=== PATIENT | female | born 1935 | race Caucasian/White ===

== ENCOUNTER 2019-06-29 11:17 | Inpatient (IN) | payer OTHER ==
--- NOTE | 2019-06-29 11:38 | PDOC ---
History of Present Illness - General Chief Complaint: Blood Pressure Problem Stated Complaint: ELEVATED BLOOD PRESSURE SLIGHT BLURRY VISION Time Seen by Provider: 06/29/19 11:21 History Source: Patient Exam Limitations: No Limitations - History of Present Illness Initial Comments: 83 yo F history HTN presents with elevated BP, blurry vision since she woke up this morning. As per daughter at bedside (translating at patient's request), patient called her this morning because her vision was blurry. Daughter asked her to check her BP and it was 223/105. She was recently taken off norvasc due to chronic leg swelling, meds were changed. However, daughter told her to take a dose of norvasc due to the high blood pressure. Upon arrival in the ED, she reports that her vision is improving. Denies weakness, numbness, headache, cp, SOB. Past History - Past Medical History Allergies/Adverse Reactions: Allergies Allergy/AdvReac Type Severity Reaction Status Date / Time No Known Allergies Allergy Unverified 06/29/19 11:19 Home Medications: Ambulatory Orders Atorvastatin Calcium 10 mg PO DAILY 06/29/19 Carvedilol 3.125 mg PO BID 06/29/19 Losartan Potassium 100 mg PO DAILY 06/29/19 Tramadol HCl 50 mg PO TID 06/29/19 COPD: No HTN: Yes Hypercholesterolemia: Yes Other medical history: BACK PAIN - Surgical History Cholecystectomy: Yes - Psycho Social/Smoking Cessation Hx Smoking History: Never smoked Information on smoking cessation initiated: No Hx Alcohol Use: No Drug/Substance Use Hx: No Review of Systems - Review of Systems Able to Perform ROS?: Yes Comments:: GENERAL/CONSTITUTIONAL: No fever or chills. No weakness. HEAD, EYES, EARS, NOSE AND THROAT: +Blurry vision B/L. No ear pain or discharge. No sore throat. CARDIOVASCULAR: No chest pain or shortness of breath. RESPIRATORY: No cough, wheezing, or hemoptysis. GASTROINTESTINAL: No nausea, vomiting, diarrhea or constipation. GENITOURINARY: No dysuria, frequency, or change in urination. MUSCULOSKELETAL: No joint or muscle swelling or pain. No neck or back pain. SKIN: No rash. NEUROLOGIC: No headache, vertigo, loss of consciousness, or change in strength/ sensation. ENDOCRINE: No increased thirst. No abnormal weight change. HEMATOLOGIC/LYMPHATIC: No anemia, easy bleeding, or history of blood clots. ALLERGIC/IMMUNOLOGIC: No hives or skin allergy. *Physical Exam - Vital Signs Last Vital Signs Temp Pulse Resp BP Pulse Ox 98.2 F 85 16 201/93 H 97 06/29/19 11:19 06/29/19 11:34 06/29/19 11:19 06/29/19 11:34 06/29/19 11:34 - Physical Exam GENERAL: Awake, alert, and fully oriented, in no acute distress HEAD: No signs of trauma EYES: PERRLA, EOMI, sclera anicteric, conjunctiva clear ENT: Auricles normal inspection, hearing grossly normal, nares patent, oropharynx clear without exudates. Moist mucosa NECK: Normal ROM, supple, no lymphadenopathy, JVD, or masses LUNGS: Breath sounds equal, clear to auscultation bilaterally. No wheezes, and no crackles HEART: Regular rate and rhythm, normal S1 and S2, no murmurs, rubs or gallops ABDOMEN: Soft, nontender, normoactive bowel sounds. No guarding, no rebound. No masses EXTREMITIES: Normal range of motion, no edema. No clubbing or cyanosis. No cords, erythema, or tenderness NEUROLOGICAL: Cranial nerves II through XII grossly intact. Normal speech, normal gait. Motor and sensation intact SKIN: Warm, dry, normal turgor, no rashes or lesions noted. ED Treatment Course - LABORATORY CBC & Chemistry Diagram: 06/29/19 12:30 06/29/19 12:30 Medical Decision Making - Medical Decision Making 06/29/19 13:31 Late entry. Pt presented with blurry vision with severely elevated BP. She took extra BP med (dose of her leftover norvasc) [employer], but the onset will be 24 hours minimum. Will give dose of labetalol in ED, goal of 25% reduction in BP. MAP from her AM BP measurement is 144, so goal MAP is 108. Will plan for admission for hypertensive urgency. 06/29/19 14:[address] Burns, accepted for admission. Discharge - Discharge Information Problems reviewed: Yes Clinical Impression/Diagnosis: Hypertensive urgency Condition: Stable - Admission Yes - Follow up/Referral - Patient Discharge Instructions - Post Discharge Activity
[2019-06-29 13:05] LABS: BASO % 0.6 % (0-2.0); EOS % 0.4 % (0-4.5); HEMATOCRIT 44.3 % (32.4-45.2); HEMOGLOBIN 14.9 GM/dl (10.7-15.3); MCH 30.2 pg (25.7-33.7); MCHC 33.6 g/dl (32.0-36.0); MEAN CELL VOLUME 89.9 fl (80-96); MEAN PLT VOLUME 8.3 fl (7.5-11.1); MONO % 10.3 % (3.8-10.2); NEUT % 54.7 % (42.8-82.8); PLATELET COUNT 184 K/MM3 (134-434); RBC 4.92 M/mm3 (3.60-5.2); RDW 12.7 % (11.6-15.6)
[2019-06-29 13:13] LABS: BILIRUBIN,TOTAL 0.8 mg/dl (0.2-1); CALCIUM 9.2 mg/dl (8.5-10); CREATININE 0.6 mg/dl (0.55-1.3); POTASSIUM 4.3 mmol/L (3.5-5.1); TOT PROT 7.4 g/dl (6.4-8.2)
[2019-06-29] MEDS ORDERED: LABETALOL HCL 5 MG/1 ML (100MG/20 ML VIAL) IVPUSH ONE (13:31)
[2019-06-29] MEDS ORDERED: LABETALOL HCL 5 MG/1 ML (100MG/20 ML VIAL) ONE (13:55)
[2019-06-29 17:02] VITALS: BMI 25.2
[2019-06-29] MEDS: HYDROCHLOROTHIAZIDE 25 MG TABLET (FP) PO SCH (17:08)
--- NOTE | 2019-06-29 18:51 | HP ---
CHIEF COMPLAINT: blurry vision , here with elevated blood pressure PCP:Dr. Malik HISTORY OF PRESENT ILLNESS: 83 year old female mainly Amharic speaking with history of hypertension who presents with elevated BP of 223/105 associated with symptoms of blurry vision since she woke up this morning. She was recently taken off norvasc due to chronic leg swelling. Daughter told her to take a dose of norvasc due to the high blood pressure. Upon arrival in the ED, she reports that her vision has improved. She denied weakness, numbness, headache, chest pain, or shortness of breath. She reports being compliant to her meds and eating foods low in sodium. ER course was notable for: (1)hypertensive urgency, given IV labetalol (2) Ct scan of head unremarkable Recent Travel: no PAST MEDICAL HISTORY: hypertension PAST SURGICAL HISTORY: none Social History: Smoking: Alcohol: Drugs: Allergies No Known Allergies Allergy (Unverified 06/29/19 11:19) HOME MEDICATIONS: Home Medications Medication Instructions Recorded Atorvastatin Calcium 10 mg PO DAILY 06/29/19 Carvedilol 3.125 mg PO BID 06/29/19 Losartan Potassium 100 mg PO DAILY 06/29/19 Tramadol HCl 50 mg PO TID 06/29/19 REVIEW OF SYSTEMS CONSTITUTIONAL: Absent: fever, chills, diaphoresis, generalized weakness, malaise, loss of appetite, weight change HEENT: Absent: rhinorrhea, nasal congestion, throat pain, throat swelling, difficulty swallowing, mouth swelling, ear pain, eye pain, visual changes CARDIOVASCULAR: Absent: chest pain, syncope, palpitations, irregular heart rate, lightheadedness , peripheral edema RESPIRATORY: Absent: cough, shortness of breath, dyspnea with exertion, orthopnea, wheezing, stridor, hemoptysis GASTROINTESTINAL: Absent: abdominal pain, abdominal distension, nausea, vomiting, diarrhea, constipation, melena, hematochezia GENITOURINARY: Absent: dysuria, frequency, urgency, hesitancy, hematuria, flank pain, genital pain MUSCULOSKELETAL: Absent: myalgia, arthralgia, joint swelling, back pain, neck pain SKIN: Absent: rash, itching, pallor HEMATOLOGIC/IMMUNOLOGIC: Absent: easy bleeding, easy bruising, lymphadenopathy, frequent infections ENDOCRINE: Absent: unexplained weight gain, unexplained weight loss, heat intolerance, cold intolerance NEUROLOGIC: Absent: headache, focal weakness or paresthesias, dizziness, unsteady gait, seizure, mental status changes, bladder or bowel incontinence, blurry vision PSYCHIATRIC: Absent: anxiety, depression, suicidal or homicidal ideation, hallucinations. PHYSICAL EXAMINATION Vital Signs - 24 hr 06/29/19 06/29/19 06/29/19 11:19 11:34 13:09 Temperature 98.2 F Pulse Rate 63 Pulse Rate [ 85 65 Left Radial] Respiratory 16 16 Rate Blood Pressure 198/88 H Blood Pressure 201/93 H 197/104 H [Right Arm] O2 Sat by Pulse 99 97 100 Oximetry (%) 06/29/19 06/29/19 06/29/19 13:55 14:10 14:28 Temperature Pulse Rate Pulse Rate [ 63 60 Left Radial] Respiratory 16 16 Rate Blood Pressure Blood Pressure 196/86 H 151/78 159/75 [Right Arm] O2 Sat by Pulse 100 Oximetry (%) 06/29/19 06/29/19 06/29/19 15:15 15:32 16:30 Temperature 98.8 F Pulse Rate 88 Pulse Rate [ Left Radial] Respiratory 16 Rate Blood Pressure 160/88 Blood Pressure 139/89 166/80 [Right Arm] O2 Sat by Pulse Oximetry (%) 06/29/19 16:48 Temperature Pulse Rate Pulse Rate [ Left Radial] Respiratory Rate Blood Pressure Blood Pressure [Right Arm] O2 Sat by Pulse 98 Oximetry (%) GENERAL: awake, alert, and fully oriented, no acute distress. HEAD: normal EYES: pupils equal, round and reactive to light, extraocular movements intact EARS, NOSE, THROAT: ears normal, nares patent, oropharynx clear without exudates moist mucous membranes NECK: normal LUNGS: breath sounds equal, clear to auscultation bilaterally no wheezes no crackles no accessory muscle use HEART: regular rate and rhythm normal S1 and S2 without murmur ABDOMEN: soft nontender not distended normoactive bowel sounds MUSCULOSKELETAL: normal range of motion at all joints UPPER EXTREMITIES: 2+ pulses, warm well-perfused no cyanosis LOWER EXTREMITIES: 2+ pulses, warm, well-perfused no pitting edema NEUROLOGICAL: normal speech fo facial grimace PSYCHIATRIC: cooperative good eye contact appropriate mood and affect SKIN: warm dry normal turgor no rashes or lesions noted normal capillary refill. Laboratory Results - last 24 hr 06/29/19 06/29/19 06/29/19 12:30 12:30 12:30 WBC 5.0 RBC 4.92 Hgb 14.9 Hct 44.3 MCV 89.9 MCH 30.2 MCHC 33.6 RDW 12.7 Plt Count 184 MPV 8.3 Absolute Neuts (auto) 2.8 Neutrophils % 54.7 Lymphocytes % 34.0 Monocytes % 10.3 H Eosinophils % 0.4 Basophils % 0.6 Sodium 139 Potassium 4.3 Chloride 107 Carbon Dioxide 27 Anion Gap 5 L BUN 17.0 Creatinine 0.6 Est GFR (CKD-EPI)AfAm 99.07 Est GFR (CKD-EPI)NonAf 85.48 Random Glucose 100 Calcium 9.2 Total Bilirubin 0.8 AST 15 ALT 11 L Alkaline Phosphatase 92 Creatine Kinase 87 Troponin I < 0.03 Total Protein 7.4 Albumin 4.0 ASSESSMENT/PLAN: 83 year old female with history of hypertension who presents with symptoms of blurry vision. She was found to have hypertensive urgency. CT scan of head was unremarkable for acute findings . She is being admitted for blood pressure monitoring and control. #1 Hypertensive Urgency Currently asymptomatic of headache or blurry vision, BP improved with IV labetalol, euvolemic on exam Renal studies normal, troponin normal --VS q4hr --Continue with increased dose of coreg to 6.25mg twice daily --Continue with losartan 100mg once daily --Added HCTZ 25mg once daily --Would avoid amlodipine due to prior leg swelling --Check renal US to exclude renal artery stenosis --Check echocardiogram to evaluate LVEF and exclude LVH and cardiomyopathy Visit type - Emergency Visit Emergency Visit: Yes ED Registration Date: 06/29/19 Care time: The patient presented to the Emergency Department on the above date and was hospitalized for further evaluation of their emergent condition. - New Patient This patient is new to me today: Yes Date on this admission: 06/29/19 - Critical Care Critical Care patient: No
[2019-06-29] MEDS ORDERED: ATORVASTATIN CA 10 MG TABLET (FP) PO SCH (22:00)
[2019-06-29] MEDS: CARVEDILOL 6.25 MG TABLET (FP) PO SCH (22:00)
[2019-06-29] MEDS: traMADol HCL 50 MG TABLET PO SCH (22:00)
[2019-06-30 05:23] VITALS: PULSE 67
[2019-06-30] MEDS: traMADol HCL 50 MG TABLET PO SCH (07:16)
[2019-06-30 08:32] LABS: HEMOGLOBIN 14.4 GM/dl (10.7-15.3); MCHC 33.5 g/dl (32.0-36.0); MEAN CELL VOLUME 89.4 fl (80-96); PLATELET COUNT 181 K/MM3 (134-434); RDW 12.8 % (11.6-15.6)
[2019-06-30 08:40] LABS: CALCIUM 9.5 mg/dl (8.5-10); CREATININE 0.7 mg/dl (0.55-1.3); POTASSIUM 4.6 mmol/L (3.5-5.1)
[2019-06-30] MEDS ORDERED: LOSARTAN POTASSIUM 50 MG TABLET (FP) PO SCH (10:00)
[2019-06-30] MEDS: CARVEDILOL 6.25 MG TABLET (FP) PO SCH (10:58)
[2019-06-30] MEDS: HYDROCHLOROTHIAZIDE 25 MG TABLET (FP) PO SCH (10:58)
--- NOTE | 2019-06-30 11:22 | DS ---
Physical Exam: SUBJECTIVE: Patient seen and examined at bedside with her daughter present. Her BP has been well controlled on her current regimen of coreg 6.25 BID increase from 3.125 BID, losartan 100mg po daily, and HCTZ 25mg po daily. No issues on telemetry. Her blurry vision has resolved. Kidney US was negative for renal artery stenosis. OBJECTIVE: Vital Signs Period Temp Pulse Resp BP Sys/Durant Pulse Ox Last 24 Hr 97.8 F-99.0 F 60-104 16-18 132-201/49-104 95-100 PHYSICAL EXAM GENERAL: The patient is awake, alert, and in no acute distress. In good spirits. HEAD: Normal with no signs of trauma. EYES: extraocular movements intact LUNGS: Breath sounds equal, clear to auscultation bilaterally, no wheezes, no crackles, no accessory muscle use. HEART: Regular rate and rhythm, S1, S2 without murmur, rub or gallop. ABDOMEN: Soft, nontender, nondistended, EXTREMITIES: no edema. NEUROLOGICAL: Cranial nerves II through XII grossly intact. Normal speech, gait not observed. PSYCH: Normal mood, normal affect. LABS Laboratory Results - last 24 hr 06/29/19 06/29/19 06/29/19 12:30 12:30 12:30 WBC 5.0 RBC 4.92 Hgb 14.9 Hct 44.3 MCV 89.9 MCH 30.2 MCHC 33.6 RDW 12.7 Plt Count 184 MPV 8.3 Absolute Neuts (auto) 2.8 Neutrophils % 54.7 Lymphocytes % 34.0 Monocytes % 10.3 H Eosinophils % 0.4 Basophils % 0.6 Sodium 139 Potassium 4.3 Chloride 107 Carbon Dioxide 27 Anion Gap 5 L BUN 17.0 Creatinine 0.6 Est GFR (CKD-EPI)AfAm 99.07 Est GFR (CKD-EPI)NonAf 85.48 Random Glucose 100 Calcium 9.2 Total Bilirubin 0.8 AST 15 ALT 11 L Alkaline Phosphatase 92 Creatine Kinase 87 Troponin I < 0.03 Total Protein 7.4 Albumin 4.0 TSH 0.51 06/29/19 06/29/19 06/30/19 18:00 18:00 07:44 WBC 5.0 RBC 4.80 Hgb 14.4 Hct 43.0 MCV 89.4 MCH 30.0 MCHC 33.5 RDW 12.8 Plt Count 181 MPV 8.0 Absolute Neuts (auto) Neutrophils % Lymphocytes % Monocytes % Eosinophils % Basophils % Sodium Potassium Chloride Carbon Dioxide Anion Gap BUN Creatinine Est GFR (CKD-EPI)AfAm Est GFR (CKD-EPI)NonAf Random Glucose Calcium Total Bilirubin AST ALT Alkaline Phosphatase Creatine Kinase 71 Troponin I < 0.03 Total Protein Albumin TSH 06/30/19 07:44 WBC RBC Hgb Hct MCV MCH MCHC RDW Plt Count MPV Absolute Neuts (auto) Neutrophils % Lymphocytes % Monocytes % Eosinophils % Basophils % Sodium 138 Potassium 4.6 Chloride 104 Carbon Dioxide 27 Anion Gap 7 L BUN 19.0 H Creatinine 0.7 Est GFR (CKD-EPI)AfAm 94.18 Est GFR (CKD-EPI)NonAf 81.26 Random Glucose 101 Calcium 9.5 Total Bilirubin AST ALT Alkaline Phosphatase Creatine Kinase Troponin I Total Protein Albumin TSH HOSPITAL COURSE: Date of Admission:06/29/19 Date of Discharge: 06/30/19 Minutes to complete discharge: 37 Discharge Summary Problems reviewed: Yes Reason For Visit: HYPERTENSIVE URGENCY Current Active Problems Hypertension (Acute) Hypertensive urgency (Acute) Hospital Course: 83F with history of HTN presented to the ER yesterday with hypertensive urgency. BP was 201/93 and the patient had blurry vision. Her daughter called a friend who is a physician and told her to check her BP and since it was high she was advised to take a dose of norvasc which she had from an old Rx. No longer on it due to lower extremity edema. She was admitted to telemetry and had no events. Her BP was slowly lowered taking care not to normalize blood pressure too quickly. Her losartan 100mg daily was continued, her coreg 3.125mg po BID was increased/doubled to 6.25mg po BID, and she was started on HCTZ 25mg po daily. Her BP was been in the 130s-140s systolic over 60-70ss diastolic. HR has been in the 60s and never less than 60 BPM. OK for discharge. daughter extensively counselled on importance of compliance, symptoms to look out for if her BP gets too high, and what to look out for if her BP gets too low. asymptomatic at this time. Daughter will have her follow up with PCP this coming week. She is also going to schedule an appointment with a team psychologist that the patient's follows with. Patient does not follow with team psychologist. Can get Echo as outpatient. Condition: Improved - Instructions Diet, Activity, Other Instructions: You were hospitalized for high blood pressure and blurry vision. Your blood pressure is controlled now. Eat a low salt diet. Make sure you keep yourself hydrated. Please brick picker your new medication from the pharmacy and start it tomorrow 07/01/2019 since you already got a dose for today. You will be on hydrochlorothiazide 25mg once a day. Please take your medications at the same time everyday. If you have recurrence or worsening of your symptoms or new symptoms such as nausea vomiting headaches chest pain shortness of breath palpitations please go to the nearest emergency room. It is important you take your medications everyday. If you start to get tired lethargic dizzy or lightheadedness your blood pressure might be too low. even if your BP is considered normal it might be too low for you. In that case go to the nearest emergency room Your primary care doctor or your team psychologist can decide if you need a cardiac echocardiogram as an outpatient. It was a pleasure caring for you Dr. Shakeel Burns Referrals: Taniya Malik [Other] - 1 Week Disposition: HOME - Home Medications Comprehensive Discharge Medication List: Ambulatory Orders Atorvastatin Calcium 10 mg PO DAILY 06/29/19 Losartan Potassium 100 mg PO DAILY 06/29/19 Tramadol HCl 50 mg PO TID 06/29/19 Carvedilol [Coreg -] 6.25 mg PO BID #60 tablet 06/30/19 Hydrochlorothiazide [Hctz -] 25 mg PO DAILY #30 tablet 06/30/19 This patient is new to me today: Yes Date on this admission: 06/30/19 Emergency Visit: Yes ED Registration Date: 06/29/19 Care time: The patient presented to the Emergency Department on the above date and was hospitalized for further evaluation of their emergent condition. Critical Care patient: No - Discharge Referral [facility]erred to [facility] Med P.C.: No
[2019-06-30 11:34] VITALS: BP 121/59
[2019-06-30 11:36] VITALS: TEMP 98
--- NOTE | 2019-07-02 10:28 | EKG ---
Test Reason : Blood Pressure : / mmHG Vent. Rate : 063 BPM Atrial Rate : 063 BPM P-R Int : 148 ms QRS Dur : 090 ms QT Int : 404 ms P-R-T Axes : 000 011 005 degrees QTc Int : 413 ms NORMAL SINUS RHYTHM NORMAL ECG NO PREVIOUS ECGS AVAILABLE Confirmed by Stephon Moses ([id number]) on 07/02/2019 10:28:19 AM Referred By: VELIA THORNTON Confirmed By:Stephon Moses
== END 2019-06-30 12:02 | disposition home or self-care (01) | DRG 305 ==
LOC: FER 11:17 → FM/S 14:01
PROVIDERS: ADMIT Family Medicine; ATTEND Internal Medicine
DX: I16.0 Hypertensive urgency (principal); H53.8 Other visual disturbances; R60.9 Edema, unspecified
CPT/HCPCS: 36415; 70450-TC; 76775-TC; 80048; 80053; 82550; 84443; 84484; 85025; 85027; 93005; 99285-25